=== PATIENT | female | born 1970 | race Asian ===

== ENCOUNTER → 2020-02-01 | Day surgery (SDC) | payer OTHER ==
[~2020-02-01] MED LIST: FENTANYL CITRATE/PF 100MCG/2 ML INJ ONE; GLUCAGON FOR INJ 1 MG VIAL ONE; HYOSCYAMINE 0.125 MG TAB ONE; LIDOCAINE HCL 2% LOCAL INJ 5 ML SDV VIAL INJ ONE; MIDAZOLAM HCL 2 MG/2 ML VIAL ONE; OMEPRAZOLE40 MG PO; PROPOFOL IV EMULSION 10 MG/ML 20 ML VIAL ONE
[2020-02-01 15:40] VITALS: BP 100/60
--- NOTE | 2020-02-01 21:30 | Operative Report ---
DATE OF PROCEDURE: 02/01/2020 SURGEON: Ron Ross MD PROCEDURES: EGD with biopsies and colonoscopy with polypectomy and biopsies. INDICATIONS FOR EGD: Heartburn. INDICATIONS FOR COLONOSCOPY: Surveillance colonoscopy, personal history of colon polyps, history of left lower quadrant discomfort. MEDICATIONS: The patient was done under MAC, please see anesthesiologist's note. PROCEDURE IN DETAIL: With the patient in left lateral decubitus position, a flexible fiberoptic Olympus gastroscope was introduced into the esophagus under direct visualization without any difficulty. There was some patchy erythema noted in distal esophagus. The scope was then advanced with ease into the stomach. Mucosa overlying the antrum and the body revealed some patchy erythema and low-grade to moderate edema, and biopsies were obtained, sent to stain for H. pylori. Pylorus was of normal contour and shape, it was intubated with ease and the scope was advanced all the way to the second portion of the duodenum. Biopsies were obtained from the proximal second portion and duodenal bulb to rule out sprue. The scope was then withdrawn back into the stomach and retroflexed, mucosa overlying the fundus and cardia appeared to be within normal limits. The scope was then straightened out, it was subsequently withdrawn. The patient tolerated the procedure well. IMPRESSION: 1. Distal esophagitis, mild. 2. Gastritis, biopsied, biopsies sent to stain for H. pylori. 3. Rule out sprue. PLAN: 1. Follow up histology. 2. Initiate Protonix 40 mg one p.o. q.a.m. a.c. DESCRIPTION OF PROCEDURE: The patient was then turned around after adequate lubrication of the anal canal, a flexible fiberoptic Olympus colonoscope was inserted into the rectum with ease and advanced all the way to the cecum. Mucosa overlying the cecum appeared to be within normal limits. One polyp was hot snared from the ascending colon and site was hemoclipped x1, one polyp was hot snared, one polyp was hot biopsied from the transverse colon. The descending colon appeared to be within normal limits. There were some mild patchy inflammatory changes noted in the sigmoid colon, and biopsies were obtained. One polyp was hot biopsied from the sigmoid colon. The rectum appeared to be within normal limits. The scope was then retroflexed into the distal rectum and small internal hemorrhoids were noted, none of which was actively bleeding. The scope was then straightened out, it was subsequently withdrawn. The patient tolerated the procedure well. IMPRESSION: 1. Ascending colon polyp, hot snared, site hemoclipped x1. 2. Transverse colon polyps x2, one hot snared, one hot biopsied. 3. Mild patchy segmental colitis, sigmoid colon. 4. Sigmoid colon polyp, hot biopsied. 5. Internal hemorrhoids, none actively bleeding. PLAN: 1. Followup histology. 2. Initiate high-fiber, low-fat diet. 3. Initiate high-fiber supplement. 4. Initiate Bentyl 10 mg one p.o. t.i.d. 5. The patient might benefit from a colonoscopy in 3 years. Ron Ross MD [facility] [place] [place] /[id number] cc: Merissa Maier MD
== END | disposition home or self-care (01) ==
LOC: OR 12:12
PROVIDERS: ATTEND Internal Medicine Gastroenterology
DX: K29.50 Unspecified chronic gastritis without bleeding (principal); D12.3 Benign neoplasm of transverse colon; D12.2 Benign neoplasm of ascending colon; K50.10 Crohn's disease of large intestine without complications; K21.9 Gastro-esophageal reflux disease without esophagitis; B96.81 Helicobacter pylori [H. pylori] as the cause of diseases classified elsewhere; K55.9 Vascular disorder of intestine, unspecified; K20.9 Esophagitis, unspecified; K64.8 Other hemorrhoids; Z01.812 Encounter for preprocedural laboratory examination; Z11.59 Encounter for screening for other viral diseases; Z68.28 Body mass index [BMI] 28.0-28.9, adult
CPT/HCPCS: 43239; 45384; 45385; 81025; 87635; J1610; J2001; J2250; J3010

== ENCOUNTER → 2021-07-04 | Day surgery (SDC) | payer BC, OTHER ==
[~2021-07-04] MED LIST changes: -GLUCAGON FOR INJ 1 MG VIAL ONE; -HYOSCYAMINE 0.125 MG TAB ONE; -LIDOCAINE HCL 2% LOCAL INJ 5 ML SDV VIAL INJ ONE; +PANTOPRAZOLE SO40 MG PO; +SIMVASTATIN40 MG PO
[2021-07-04 14:40] VITALS: BP 107/74
== END | disposition home or self-care (01) ==
LOC: OR 11:28
PROVIDERS: ATTEND Internal Medicine Gastroenterology
DX: K29.50 Unspecified chronic gastritis without bleeding (principal); B96.81 Helicobacter pylori [H. pylori] as the cause of diseases classified elsewhere; K21.9 Gastro-esophageal reflux disease without esophagitis; Z86.010 Personal history of colon polyps; K64.8 Other hemorrhoids; Z86.19 Personal history of other infectious and parasitic diseases; Z01.810 Encounter for preprocedural cardiovascular examination; Z01.812 Encounter for preprocedural laboratory examination; Z20.822 Contact with and (suspected) exposure to COVID-19; Z79.899 Other long term (current) drug therapy; Z68.28 Body mass index [BMI] 28.0-28.9, adult
CPT/HCPCS: 43239; 81025; 93005; C9113; J2250; J2704; J3010; U0002

== ENCOUNTER 2021-07-16 07:59 | Emergency (ER) | payer BC, OTHER ==
[~2021-07-16] VITALS: Ht 154.9 cm; Wt 68.0 kg
[~2021-07-16 07:59] MED LIST changes: -FENTANYL CITRATE/PF 100MCG/2 ML INJ ONE; -MIDAZOLAM HCL 2 MG/2 ML VIAL ONE; -PROPOFOL IV EMULSION 10 MG/ML 20 ML VIAL ONE
[2021-07-16] MEDS ORDERED: BACTRIM DS TAB1 EACH PO (08:09)
[2021-07-16] MEDS ORDERED: LIDOCAINE HCL 1% LOCAL INJ 20 ML VIAL IM ONE (08:15)
[2021-07-16 08:48] VITALS: BP 117/57
== END 2021-07-16 08:45 | disposition home or self-care (01) ==
LOC: ER 08:10
DX: L02.214 Cutaneous abscess of groin (principal)
CPT/HCPCS: 99282

== ENCOUNTER → 2024-06-20 | Day surgery (SDC) | payer OTHER ==
[2024-06-18 15:12] LABS: BASOPHILS # (AUTO) 0.1 (0.0-0.1); BASOPHILS % 0.8 % (0.0-1.0); EOSINOPHILS # (AUTO) 0.3 (0.0-0.4); EOSINOPHILS % 4.3 % (0.0-6.0); HEMATOCRIT 33.3 % (34.2-44.1); HEMOGLOBIN 10.4 g/dL (12.0-16.0); LYMPHOCYTES % 28.1 % (18.0-39.1); MEAN CORPUSCULAR HEMOGLOBIN 29.3 pg (28-32); MEAN CORPUSCULAR HGB CONC 31.2 g/dL (31-35); MEAN CORPUSCULAR VOLUME 93.8 fL (81-99); MONOCYTES # (AUTO) 0.7 (0.2-0.8); MONOCYTES % 9.5 % (4.4-11.3); NEUTROPHILS # (AUTO) 4.1 (2.1-6.9); PLATELET COUNT 265 x10e3/uL (140-360); RED BLOOD COUNT 3.55 x10e6/uL (3.6-5.1); RED CELL DISTRIBUTION WIDTH 12.5 % (11.7-14.4); WHITE BLOOD COUNT 7.13 x10e3/uL (4.8-10.8)
[2024-06-18 16:02] LABS: ANION GAP 15.8 mmol/L (8-16); CALCIUM 9.8 mg/dL (8.4-10.2); CREATININE, SERUM 0.84 mg/dL (0.57-1.11); POTASSIUM 3.8 mmol/L (3.5-5.1)
[2024-06-19 08:15] LABS: CALCIUM 9.4 mg/dL (8.7-10.2)
[~2024-06-20] MED LIST changes: +ACETAMINOPHEN 1000 MG/100 ML 100 ML IV ONE; +BACTRIM DS TAB1 EACH PO; +PAROXETINE HCL20 MG PO; +VESICARE5 MG PO
[2024-06-20] MEDS: CEFTRIAXONE 1 GM VIAL ONE (07:27)
[2024-06-20] MEDS: LACTATED RINGER'S 1,000 ML ONE (07:27)
[2024-06-20 10:39] VITALS: TEMP 97.9
[2024-06-20 11:30] VITALS: BP 117/71; PULSE 66; RESP 16; O2SAT 99
== END | disposition home or self-care (01) ==
LOC: OR 06:59
PROVIDERS: ATTEND Urology
DX: N20.1 Calculus of ureter (principal); Z96.0 Presence of urogenital implants; N20.0 Calculus of kidney; N39.0 Urinary tract infection, site not specified; R35.1 Nocturia; G89.29 Other chronic pain; Z88.8 Allergy status to other drugs, medicaments and biological substances; Z01.810 Encounter for preprocedural cardiovascular examination; Z01.812 Encounter for preprocedural laboratory examination; Z01.818 Encounter for other preprocedural examination; Z79.899 Other long term (current) drug therapy
CPT/HCPCS: 36415; 50590; 74018; 80048; 83970; 84550; 85025; 93005; J0131; J0696; J7121

== ENCOUNTER → 2024-07-04 | Day surgery (SDC) | payer OTHER ==
[2024-07-03 10:48] LABS: BASOPHILS # (AUTO) 0.1 (0.0-0.1); BASOPHILS % 1.2 % (0.0-1.0); EOSINOPHILS # (AUTO) 0.4 (0.0-0.4); EOSINOPHILS % 5.7 % (0.0-6.0); HEMATOCRIT 39.1 % (34.2-44.1); LYMPHOCYTES # (AUTO) 2.3 (1.0-3.2); LYMPHOCYTES % 35.4 % (18.0-39.1); MEAN CORPUSCULAR HEMOGLOBIN 29.5 pg (28-32); MEAN CORPUSCULAR HGB CONC 30.7 g/dL (31-35); MEAN CORPUSCULAR VOLUME 96.1 fL (81-99); MONOCYTES # (AUTO) 0.5 (0.2-0.8); NEUTROPHILS # (AUTO) 3.2 (2.1-6.9); NEUTROPHILS % 49.5 % (38.7-80.0); PLATELET COUNT 255 x10e3/uL (140-360); RED BLOOD COUNT 4.07 x10e6/uL (3.6-5.1); RED CELL DISTRIBUTION WIDTH 13.2 % (11.7-14.4); WHITE BLOOD COUNT 6.53 x10e3/uL (4.8-10.8)
[2024-07-03 11:08] LABS: ANION GAP 12.8 mmol/L (8-16); CALCIUM 10.2 mg/dL (8.4-10.2); CREATININE, SERUM 0.79 mg/dL (0.57-1.11); POTASSIUM 3.8 mmol/L (3.5-5.1)
[~2024-07-04] MED LIST changes: +ACETAMINOPHEN/CODEINE 300MG - 30MG TAB ONE; +DEXAMETHASONE SOD PHOS INJ 4 MG/ML SDV ONE; +FENTANYL CITRATE/PF 100MCG/2 ML INJ ONE; +IOPAMIDOL 610MG/1ML 300 MG/ML VIAL IV ONE; +LIDOCAINE HCL 2% LOCAL INJ 5 ML SDV VIAL INJ ONE; +PROPOFOL IV EMULSION 10 MG/ML 20 ML VIAL ONE; +SEVOFLURANE INHAL SOLN 250 ML PEN BTL ONE; +SODIUM CHLORIDE 0.9% 100 ML ONE
[2024-07-04] MEDS: LACTATED RINGER'S 1,000 ML ONE (05:34)
[2024-07-04] MEDS: CEFTRIAXONE 1 GM VIAL ONE (05:35)
[2024-07-04] MEDS: GENTAMICIN 80MG/NS 100 ML 200 ML IV ONE (05:35)
[2024-07-04 08:51] VITALS: TEMP 97.9
[2024-07-04] MEDS: PHENAZOPYRIDINE HCL 100 MG TAB ONE (09:25)
[2024-07-04] MEDS: ACETAMINOPHEN/CODEINE 300MG - 30MG TAB PO ONE (09:45)
[2024-07-04 09:55] VITALS: BP 126/79; PULSE 59; RESP 16; O2SAT 99
== END | disposition home or self-care (01) ==
LOC: OR 05:39
PROVIDERS: ATTEND Urology
DX: N20.1 Calculus of ureter (principal); N20.0 Calculus of kidney; N81.10 Cystocele, unspecified; N81.6 Rectocele; N36.41 Hypermobility of urethra; N95.2 Postmenopausal atrophic vaginitis; Z88.6 Allergy status to analgesic agent; Z46.6 Encounter for fitting and adjustment of urinary device; Z01.812 Encounter for preprocedural laboratory examination; Z01.818 Encounter for other preprocedural examination
CPT/HCPCS: 36415; 52352; 74018; 74420; 80048; 84550; 85025; 87086; 87186; 88300; C1769; J0131; J0696; J1100; J1580; J2003; J2704; J3010; J7050; J7121; Q9967